=== PATIENT | male | born 2000 ===

== ENCOUNTER 2018-10-07 20:03 | Emergency (ER) ==
[2018-10-07 20:52] VITALS: BP 122/75
== END 2018-10-07 23:18 | disposition left against medical advice (07) ==
LOC: ER 20:03
DX: Z53.21 Procedure and treatment not carried out due to patient leaving prior to being seen by health care provider (principal); S61.411A Laceration without foreign body of right hand, initial encounter; X58.XXXA Exposure to other specified factors, initial encounter